=== PATIENT | female | born 1990 | race Caucasian/White ===

== ENCOUNTER 2019-06-22 10:00 | Emergency (ER) | payer OTHER ==
[2019-06-22] MEDS ORDERED: MORPHINE SULFATE 10 MG/ML IV ONE (10:31)
[2019-06-22] MEDS ORDERED: TORAdol 30 mg Injection IV ONE (10:31)
[2019-06-22] MEDS ORDERED: Zofran 4 MG/2 ML VIAL IV ONE (10:31)
--- NOTE | 2019-06-22 10:35 | ERPHSYRPT ---
- History of Present Illness Time Seen by Provider: 06/22/19 10:20 Historian: patient Exam Limitations: no limitations Patient Subjective Stated Complaint: co abd pain for last couple days. n/v/d/ today, no fever Triage Nursing Assessment: pt alert, arrived per wc, resp easy, skin w/d/p. tender to epigastric area, abd soft with bs. no edema noted Physician History: the patient is a 29-year-old female who presents with a chief complaint abdominal pain. Onset report loses past Saturday night after she had been eating a meal. The pain is described as a sharp pain located primarily in her midepigastrium and right upper quadrant it has been constant since Saturday night. The pain has progressively gotten worse since that time and is radiating to her back. The pain is not associated with nausea in addition to nonbloody diarrhea and decreased appetite. The patient reportedly has not had anything to eat since last night. She denies fever, chills, jaundice, leigh-colored stools, dark colored urine and prior history of gallbladder disease. She states she is otherwise healthy and does not take any prescribed meds nor has she had any abdominal surgeries. She reportedly took some Tylenol as one of but no relief in her pain and decided to come to the emergency department for further evaluation and management. Allergies/Adverse Reactions: No Known Drug Allergies Allergy (Unverified 06/22/19 10:16) Hx Influenza Vaccination/Date Given: Yes Hx Pneumococcal Vaccination/Date Given: No Immunizations Up to Date: Yes - Review of Systems Constitutional: No Symptoms, No Fever, No Chills Eyes: No Symptoms Ears, Nose, & Throat: No Symptoms Respiratory: No No Symptoms Cardiac: No Symptoms (as well as the you and is in in an in her own and he had an) Abdominal/Gastrointestinal: Abdominal Pain, Nausea, Diarrhea (iis) Genitourinary Symptoms: No Symptoms Musculoskeletal: No Symptoms Skin: No Symptoms Neurological: No Symptoms Endocrine: No Symptoms All Other Systems: Reviewed and Negative - Past Medical History Pertinent Past Medical History: Yes Cardiac History: Hypertension - Past Surgical History Past Surgical History: No - Social History Smoking Status: Never smoker Exposure to second hand smoke: No Drug Use: none Patient Lives Alone: No - Female History Hx Last Menstrual Period: nov Hx Now: No - Nursing Vital Signs Nursing Vital Signs: Initial Vital Signs Temperature 98.8 F 06/22/19 10:07 Pulse Rate 80 06/22/19 10:07 Respiratory Rate 18 06/22/19 10:07 Blood Pressure 121/82 06/22/19 10:07 O2 Sat by Pulse Oximetry 98 06/22/19 10:07 Pain Scale Pain Intensity 0 - Physical Exam General Appearance: no apparent distress, mild distress Ears, Nose, Throat Exam: normal ENT inspection Neck Exam: normal inspection Respiratory Exam: normal breath sounds, lungs clear, respiratory distress Cardiovascular Exam: normal heart sounds, normal peripheral pulses, tachycardia , capillary refill <2 sec Gastrointestinal/Abdomen Exam: tenderness, other (RUQ and epigastric tenderness with + Ann sign. No rebound tenderness), No distention, No mass, No guarding , No hepatomegaly Back Exam: normal inspection, No CVA tenderness Extremity Exam: normal inspection Neurologic Exam: alert, oriented x 3, cooperative Skin Exam: normal color, warm, No petechiae, No jaundice SpO2: 98 Ordered Tests: Medication Summary Discontinued Medications Generic Name Dose Route Start Last Admin Trade Name Aydinq PRN Reason Stop Dose Admin Sodium Chloride 1,000 mls @ 999 mls/hr 06/22/19 12:02 06/22/19 12:13 Sodium Chloride 0.9% 1000 Ml IV 06/22/19 13:02 999 mls/hr .Q1H1M STA Administration Sodium Chloride Confirm 06/22/19 12:12 Sodium Chloride 0.9% 1000 Ml Administered 06/22/19 12:13 Dose 1,000 mls @ ud .ROUTE .STK-MED ONE Ketorolac Tromethamine 15 mg 06/22/19 10:31 06/22/19 10:43 Toradol 30 Mg Injection IV 06/22/19 10:32 15 mg STAT ONE Administration Ketorolac Tromethamine Confirm 06/22/19 10:39 Toradol 30 Mg Injection Administered 06/22/19 10:40 Dose 30 mg .ROUTE .STK-MED ONE Morphine Sulfate 6 mg 06/22/19 10:31 06/22/19 10:43 Morphine Sulfate 10 Mg/Ml IV 06/22/19 10:32 6 mg STAT ONE Administration Morphine Sulfate Confirm 06/22/19 10:39 Morphine Sulfate 10 Mg/Ml Administered 06/22/19 10:40 Dose 10 mg .ROUTE .STK-MED ONE Ondansetron HCl 4 mg 06/22/19 10:31 06/22/19 10:43 Zofran 4 Mg/2 Ml Vial IV 06/22/19 10:32 4 mg STAT ONE Administration Ondansetron HCl Confirm 06/22/19 10:39 Zofran 4 Mg/2 Ml Vial Administered 06/22/19 10:40 Dose 4 mg .ROUTE .[facility] ONE Lab/Rad Data: Laboratory Result Diagrams 06/22/19 10:48 06/22/19 10:48 Laboratory Results 06/22/19 06/22/19 06/22/19 Range/Units 10:48 10:48 10:37 WBC 9.1 (4.0-10.5) K/mm3 RBC 5.15 (4.1-5.4) M/mm3 Hgb 14.8 (12.0-16.0) gm/dl Hct 43.0 (35-47) % MCV 83.5 (78-100) fl MCH 28.7 (26-32) pg MCHC 34.4 (32-36) g/dl RDW 14.1 H (11.5-14.0) % Plt Count 220 (150-450) K/mm3 MPV 10.7 H (6-9.5) fl Gran % 84.7 H (36.0-66.0) % Eos # (Auto) 0.03 (0-0.5) Absolute Lymphs (auto) 0.66 L (1.0-4.6) Absolute Monos (auto) 0.69 (0.0-1.3) Lymphocytes % 7.3 L (24.0-44.0) % Monocytes % 7.6 (0.0-12.0) % Eosinophils % 0.3 (0.00-5.0) % Basophils % 0.1 (0.0-0.4) % Absolute Granulocytes 7.70 H (1.4-6.9) Basophils # 0.01 (0-0.4) Sodium 144 (137-145) mmol/L Potassium 4.3 (3.5-5.1) mmol/L Chloride 107 (98-107) mmol/L Carbon Dioxide 21 L (22-30) mmol/L Anion Gap 20.0 H (5-15) MEQ/L BUN 12 (7-17) mg/dL Creatinine 0.74 (0.52-1.04) mg/dL Estimated GFR > 60.0 ML/MIN Glucose 107 H (74-106) mg/dL Calcium 10.2 (8.4-10.2) mg/dL Total Bilirubin 0.80 (0.2-1.3) mg/dL AST 24 (14-36) U/L ALT 14 (0-35) U/L Alkaline Phosphatase 98 (38-126) U/L Serum Total Protein 8.7 H (6.3-8.2) g/dL Albumin 5.0 (3.5-5.0) g/dL Lipase 96 (23-300) U/L Urine Color (YELLOW) Urine Appearance (CLEAR) Urine pH (5-6) Ur Specific [place] (1.005-1.025) Urine Protein (Negative) Urine Ketones (NEGATIVE) Urine Blood (0-5) Que/ul Urine Nitrite (NEGATIVE) Urine Bilirubin (NEGATIVE) Urine Urobilinogen (0-1) mg/dL Ur Leukocyte Esterase (NEGATIVE) Urine WBC (Auto) (0-5) /HPF Urine RBC (Auto) (0-2) /HPF U Epithel Cells (Auto) (FEW) /HPF Urine Bacteria (Auto) (NEGATIVE) /HPF Urine Mucus (Auto) (NEGATIVE) /HPF Urine Culture Reflexed (NO) Urine Glucose (NEGATIVE) mg/dL Urine HCG, Qual NEGATIVE (Negative) 06/22/19 Range/Units 10:37 WBC (4.0-10.5) K/mm3 RBC (4.1-5.4) M/mm3 Hgb (12.0-16.0) gm/dl Hct (35-47) % MCV (78-100) fl MCH (26-32) pg MCHC (32-36) g/dl RDW (11.5-14.0) % Plt Count (150-450) K/mm3 MPV (6-9.5) fl Gran % (36.0-66.0) % Eos # (Auto) (0-0.5) Absolute Lymphs (auto) (1.0-4.6) Absolute Monos (auto) (0.0-1.3) Lymphocytes % (24.0-44.0) % Monocytes % (0.0-12.0) % Eosinophils % (0.00-5.0) % Basophils % (0.0-0.4) % Absolute Granulocytes (1.4-6.9) Basophils # (0-0.4) Sodium (137-145) mmol/L Potassium (3.5-5.1) mmol/L Chloride (98-107) mmol/L Carbon Dioxide (22-30) mmol/L Anion Gap (5-15) MEQ/L BUN (7-17) mg/dL Creatinine (0.52-1.04) mg/dL Estimated GFR ML/MIN Glucose (74-106) mg/dL Calcium (8.4-10.2) mg/dL Total Bilirubin (0.2-1.3) mg/dL AST (14-36) U/L ALT (0-35) U/L Alkaline Phosphatase (38-126) U/L Serum Total Protein (6.3-8.2) g/dL Albumin (3.5-5.0) g/dL Lipase (23-300) U/L Urine Color YELLOW (YELLOW) Urine Appearance SLIGHTLY CLOUDY (CLEAR) Urine pH 7.0 (5-6) Ur Specific [place] 1.024 (1.005-1.025) Urine Protein NEGATIVE (Negative) Urine Ketones SMALL (NEGATIVE) Urine Blood NEGATIVE (0-5) Que/ul Urine Nitrite NEGATIVE (NEGATIVE) Urine Bilirubin NEGATIVE (NEGATIVE) Urine Urobilinogen NEGATIVE (0-1) mg/dL Ur Leukocyte Esterase NEGATIVE (NEGATIVE) Urine WBC (Auto) 0-2 (0-5) /HPF Urine RBC (Auto) 0-2 (0-2) /HPF U Epithel Cells (Auto) RARE (FEW) /HPF Urine Bacteria (Auto) NONE (NEGATIVE) /HPF Urine Mucus (Auto) SLIGHT (NEGATIVE) /HPF Urine Culture Reflexed NO (NO) Urine Glucose NEGATIVE (NEGATIVE) mg/dL Urine HCG, Qual (Negative) - Progress Progress: improved, re-examined Progress Note: 06/22/19 10:50 Lab called to notify me they have to send the lipase and CMP out because the analyzer is down. Delay in workup due to this. 06/22/19 11:14 US at bedside and she and I reviewed the gallbladder with no evidence of choledocholithiasis or cholecystitis. Normal appearing CBD. CT abd/pelvis ordered. 06/22/19 12:00 Patient reassessed to fing that she is feeling better 06/22/19 12:02 Blood pressure 98 systolic and 1 L of NS ordered. Patient still awaiting for CT. 06/22/19 12:40 CT abd/pelvis reviewed by me and with no evidence of acute intra-abdominal process. Awaiting formal radiology review. 06/22/19 12:[address] with 1.7 right ovary cyst with tiney cul-de-sac fluid. Double curvature scoliosis, remaining CT negative 06/22/19 13:56 Called lab for ETA on CMP and lipase. I was informed they would look into it and would get a call back. Nontoxic in appearance. No evidence of cholecystitis, cholelithiasis and CT with evidence of ovarian cyst which I do not think is the cause of her pain. ? gastritis or PUD or gallbladder dysfunction. The patient was ultimately discharged home to f/u with PCP and prescribed omeprazole. Counseled pt/family regarding: lab results, diagnosis, need for follow-up, rad results - Departure Departure Disposition: Home, In-patient Admission Clinical Impression: Abdominal pain, Epigastric abdominal pain Condition: Good Critical Care Time: No Referrals: KISHA PEREZ [Primary Care Provider] - Plan of Treatment: Please follow-up with your primary care provider within 1-2 weeks and inquire about the need for a HIDA scan and/or need for EGD and follow-up with gastroenterology. Please refrain from using NSAIDs, alcohol, spicy and fatty foods. Prescriptions: Omeprazole 20 mg PO DAILY #30 capsule.
[2019-06-22] MEDS ORDERED: Zofran 4 MG/2 ML VIAL ONE (10:39)
[2019-06-22] MEDS ORDERED: TORAdol 30 mg Injection ONE (10:39)
[2019-06-22] MEDS ORDERED: MORPHINE SULFATE 10 MG/ML ONE (10:39)
[2019-06-22 10:48] LABS: BASOPHIL % 0.1 % (0.0-0.4); Basophil (Absolute #) 0.01 (0-0.4); Eosinophil % 0.3 % (0.00-5.0); Eosinophil (Absolute #) 0.03 (0-0.5); Hemoglobin 14.8 gm/dl (12.0-16.0); Lymphocyte (Absolute #) 0.66 (1.0-4.6); Lymphocytes % 7.3 % (24.0-44.0); Mean Cell Volume 83.5 fl (78-100); Mean Corpuscular Hemoglobin 28.7 pg (26-32); Mean Corpuscular Hgb Concent. 34.4 g/dl (32-36); Mean Platelet Volume 10.7 fl (6-9.5); Monocyte (Absolute #) 0.69 (0.0-1.3); Monocytes % 7.6 % (0.0-12.0); Neutrophil % 84.7 % (36.0-66.0); Platelet Count 220 K/mm3 (150-450); Red Blood Count 5.15 M/mm3 (4.1-5.4); Red Cell Distribution Width 14.1 % (11.5-14.0); White Blood Count 9.1 K/mm3 (4.0-10.5)
[2019-06-22 10:51] LABS: Appearance SLIGHTLY CLOUDY (CLEAR); Bilirubin NEGATIVE (NEGATIVE); Blood NEGATIVE Ery/ul (0-5); Epithelial Cells RARE /HPF (FEW); Glucose NEGATIVE (NEGATIVE); Ketones SMALL (NEGATIVE); Leukocyte Esterase NEGATIVE (NEGATIVE); Mucus SLIGHT /HPF (NEGATIVE); Nitrite NEGATIVE (NEGATIVE); Protein,Urine Dip NEGATIVE (Negative); RBC 0-2 /HPF (0-2); Specific Gravity 1.024 (1.005-1.025); Urobilinogen NEGATIVE mg/dL (0-1); WBC 0-2 /HPF (0-5)
--- NOTE | 2019-06-22 11:38 | XRAY ---
Indication: Right upper quadrant pain. Two-dimensional gallbladder sonogram performed. Comparison: None Visualized portions of the gallbladder, liver, pancreas, and right kidney appear sonographically normal. Common bile duct measures 3.6 mm. Right kidney measures 9.9 cm in length. No ascites. Impression: Negative gallbladder sonogram.
[2019-06-22] MEDS ORDERED: Sodium Chloride 0.9% 1000 ML 1,000 ML IV STA (12:02)
[2019-06-22] MEDS ORDERED: Sodium Chloride 0.9% 1000 ML 1,000 ML ONE (12:12)
--- NOTE | 2019-06-22 12:45 | XRAY ---
Indication: Right abdomen pain, diarrhea, and vomiting. Multiple contiguous axial images obtained through the abdomen and pelvis using 80 cc Isovue 370 contrast only. Comparison: None Lung bases are clear. Heart is not enlarged. Noncontrasted stomach and bowel loops appear nonobstructed. Normal appendix just lateral to the cecum. Tiny cul-de-sac fluid presumed physiologic from rupture/leaking cyst. 1.7 cm right ovary cyst. No free air. Remaining liver, gallbladder, pancreas, spleen, adrenal glands, kidneys, ureters, bladder, uterus, and aorta appear unremarkable. No pathologic retroperitoneal lymphadenopathy. Osseous structures intact with moderate double curvature thoracolumbar scoliosis. Impression: 1. 1.7 cm right ovary cyst with tiny cul-de-sac fluid. 2. Double curvature scoliosis. 3. Remaining CT abdomen/pelvis with contrast exam is negative. CT DI 2.82
[2019-06-22 14:10] LABS: ALKALINE PHOSPHATASE 98 U/L (38-126); BLOOD UREA NITROGEN 12 mg/dL (7-17); CHLORIDE 107 mmol/L (98-107); Calcium 10.2 mg/dL (8.4-10.2); Carbon Dioxide 21 mmol/L (22-30); Creatinine 1 0.74 mg/dL (0.52-1.04); Glucose 107 mg/dL (74-106); LIPASE 96 U/L (23-300); Potassium 4.3 mmol/L (3.5-5.1); SGOT/AST 24 U/L (14-36); SGPT/ALT 14 U/L (0-35); SODIUM 144 mmol/L (137-145); Total Protein 8.7 g/dL (6.3-8.2)
[2019-06-22 14:41] VITALS: BP 103/57; PULSE 88
[2019-06-23 16:49] VITALS: O2SAT 98
== END 2019-06-22 14:42 | disposition home or self-care (01) ==
LOC: ED 10:00
DX: R10.13 Epigastric pain (principal); I10 Essential (primary) hypertension; Z79.899 Other long term (current) drug therapy
CPT/HCPCS: 36000; 36415; 74177; 76705; 80053; 81001; 83690; 84703; 85025; 96360; 96374; 96375; 99284; J1885; J2270; J2405